=== PATIENT | female | born 1995 | race Two or more races ===

== ENCOUNTER 2017-04-10 07:42 | Emergency (ER) | payer OTHER ==
[2017-04-10] MEDS ORDERED: diPHENhydraMINE PO* 50 MG PO ONE (08:22)
[2017-04-10] MEDS ORDERED: predniSONE TAB* 20 MG PO ONE (08:22)
--- NOTE | 2017-04-10 09:07 | ED ---
Betito De La Cruz Alfonso, scribed for Andrew Broderick MD on 04/10/17 at 0825 . Allergic Reaction/Systemic - HPI Summary HPI Summary: This is a 22 y.o F presenting to [facility] c/o possible allergic reaction with localized edema on the right upper lip since approximately an hour ago. She reports an insect bite, possibly a mosquito, denying previous similar reactions. She denies rash, tongue swelling, SOB, trouble swallowing, and other respiratory distress. PMHx does not include asthma. 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 SHx includes occasional drinking. Pt is recent [employer] graduate. - History of Current Complaint Chief Complaint: EDAllergicReaction Time Seen by Provider: 04/10/17 08:12 Hx Obtained From: Patient Onset/Duration: Sudden Onset, Started hours ago - One hour, Still Present Timing: Constant Severity Initially: Moderate Severity Currently: Moderate Pain Intensity: 0 Pain Scale Used: 0-10 Numeric Location: Discrete @ - Right Upper lip Aggravating Factor(s): Other - Possible insect bite Alleviating Factor(s): Nothing Associated Signs And Symptoms: Negative: Cough Wheezing, Difficulty Breathing, Rash, Throat Tightening - Related Hx Possible Reaction To: Insect - Allergies/Home Medications Allergies/Adverse Reactions: Allergies Allergy/AdvReac Type Severity Reaction Status Date / Time No Known Allergies Allergy Verified 04/10/17 08:28 PMH/Surg Hx/FS Hx/Imm Hx Respiratory History: Denies: Hx Asthma Infectious Disease History: No Infectious Disease History: Denies: Traveled Outside the [place] in Last 30 Days - Family History Known Family History: Positive: Hypertension - Social History Occupation: Student - Recent [employer] Alcohol Use: Occasionally Hx Substance Use: No Substance Use Type: Reports: None Hx Tobacco Use: No Smoking Status (MU): Never Smoked Tobacco Review of Systems Negative: Fever Negative: Other - Tongue swelling and trouble swallowing Negative: Shortness Of Breath Positive: Other - Localized edema on the right upper lip . Negative: Rash All Other Systems Reviewed And Are Negative: Yes Physical Exam - Summary Physical Exam Summary: The patient is well-nourished in no acute distress and in no acute pain. The skin is warm and dry and skin color reflects adequate perfusion. No hives. HEENT: The head is normocephalic and atraumatic. The pupils are equal and reactive. The conjunctivae are clear and without drainage. Nares are patent and without drainage. Mouth reveals moist mucous membranes and the throat is patent without erythema and exudate. The external ears are intact. The ear canals are patent and without drainage. The tympanic membranes are intact. Tongue is not edematous. Neck is supple with full range of motion and non-tender. There are no carotid bruits. There is no neck vein distension. Respiratory: Chest is non-tender. Lungs are clear to auscultation and breath sounds are symmetrical and equal. Cardiovascular: Hear is regular rate and rhythm. There is no murmur or rub auscultated. There is no peripheral edema and pulses are symmetrical and equal. Abdomen: The abdomen is soft and non-tender. There are normal bowel sounds heard in all four quadrants and there is no organomegaly palpated. Musculoskeletal: There is no back pain noted. Extremities are non-tender with full range of motion. There is good capillary refill. There is no peripheral edema or calf tenderness elicited. Neurological: Patient is alert and oriented to person, place and time. The patient has symmetrical motor strength in all four extremities. Cranial nerves are grossly intact. Deep tendon reflexes are symmetrical and equal in all four extremities. Psychiatric: The patient has an appropriate affect and does not exhibit any anxiety or depression. Triage Information Reviewed: Yes Vital Signs On Initial Exam: Initial Vitals Temp Pulse Resp BP Pulse Ox 97.1 F 77 20 142/71 100 04/10/17 07:43 04/10/17 07:43 04/10/17 07:43 04/10/17 07:43 04/10/17 07:43 Vital Signs Reviewed: Yes Diagnostics - Vital Signs Vital Signs Temp Pulse Resp BP Pulse Ox 04/10/17 07:46 97.7 F 75 20 142/71 100 04/10/17 07:43 97.1 F 77 20 142/71 100 - Laboratory Lab Statement: Any lab studies that have been ordered have been reviewed, and results considered in the medical decision making process. Re-Evaluation - Re-Evaluation First Eval Re-Evaluation Time: 08:48 Comment: Swelling improved. Plan of care involving discharge and prednisone rx is discussed with pt, and she is agreeable. Allergic Reaction Course/Dx - Course Assessment/Plan: Pt presents to ED for right upper lip swelling after insect bite an hour ago. Pt states that the insect was probably mosquito. However, she denies any previous reaction to mosquito bite. Pt was symptomatically treated with diphenhydramine during ED visit, and is noted with improved swelling. Plan of care involving discharge and prednisone rx is discussed with pt, and she is agreeable. - Diagnoses Differential Diagnosis/HQI/PQRI: Positive: Anaphylaxis, Angioedema Provider Diagnoses: localized allergic reaction Discharge - Discharge Plan Condition: Stable Disposition: HOME Prescriptions: diPHENhydraMINE PO* [Benadryl PO 50 MG CAP*] 50 mg PO Q6H PRN #30 cap PRN Reason: allergic reaction predniSONE TAB* [Deltasone TAB*] 40 mg PO DAILY #10 tab Patient Education Materials: Prednisone (By mouth), Diphenhydramine (By mouth) , General Allergic Reaction (ED) Referrals: [facility] [Outside] - 2 Days Additional Instructions: Please take your Benadryl 50 mg by mouth four times a day. Apply ice as needed. The documentation as recorded by the Betito landa Alfonso accurately reflects the service I personally performed and the decisions made by me, Andrew Broderick MD.
== END 2017-04-10 09:05 | disposition home or self-care (01) ==
LOC: ED 07:42
DX: T78.40XA Allergy, unspecified, initial encounter (principal); R60.0 Localized edema; X58.XXXA Exposure to other specified factors, initial encounter
CPT/HCPCS: 99282; A9270-GY; J7512

== ENCOUNTER 2017-08-07 21:30 | Emergency (ER) | payer OTHER ==
[2017-08-07 22:11] VITALS: BP 132/84
[2017-08-07 22:32] LABS: Urine Bacteria 1+ (Absent)
[2017-08-08] MEDS ORDERED: Ciprofloxacin TAB* 500 MG PO ONE (00:28)
--- NOTE | 2017-08-09 12:41 | ED ---
Betito De La Cruz Alfonso, scribed for Arnoldo Oakley MD on 08/08/17 at 0030 . GI/ HPI - HPI Summary HPI Summary: This patient is a 22 year old F presenting to [facility] with a chief complaint of urinary symptoms since 1000 today, worse since 1800. The patient rates the pain 9/10 in severity. Symptoms aggravated by urinating. Symptoms alleviated by nothing. Patient reports dysuria, hematuria, and urinary frequency. Patient denies vaginal discharge, fever, chills, and back pain. LMP 2 weeks ago. She reports having exactly the same symptoms and a UTI diagnosis last year. - History of Current Complaint Chief Complaint: EDUrogenitalProblems Time Seen by Provider: 08/08/17 00:21 Stated Complaint: POSSIBLE UTI Hx Obtained From: Patient Onset/Duration: Started Hours Ago - 1000, Worse Since - 1800 Timing: Constant Current Severity: Severe Pain Intensity: 9 - /10 Associated Signs and Symptoms: Positive: Other: - dysuria, hematuria, and urinary frequency. Patient denies vaginal discharge, fever, chills, and back pain. Aggravating Factor(s): Urination Alleviating Factor(s): Nothing - Allergy/Home Medications Allergies/Adverse Reactions: Allergies Allergy/AdvReac Type Severity Reaction Status Date / Time No Known Allergies Allergy Verified 08/07/17 22:11 PMH/Surg Hx/FS Hx/Imm Hx Respiratory History: Denies: Hx Asthma Opthamlomology History: Denies: Hx Legally Blind EENT History: Denies: Hx Deafness Infectious Disease History: No Infectious Disease History: Denies: Traveled Outside the [place] in Last 30 Days - Family History Known Family History: Positive: Hypertension, Diabetes - Social History Alcohol Use: Occasionally Hx Substance Use: No Substance Use Type: Reports: None Hx Tobacco Use: No Smoking Status (MU): Never Smoked Tobacco Review of Systems Negative: Fever, Chills Positive: dysuria, frequency, hematuria, other - Urinary symptoms. Negative: discharge Positive: Other - Negative back pain All Other Systems Reviewed And Are Negative: Yes Physical Exam - Summary Physical Exam Summary: VITAL SIGNS: Reviewed. GENERAL: Patient is a well-developed and nourished female who is lying comfortable in the stretcher. Patient is not in any acute respiratory distress. HEAD AND FACE: No signs of trauma. No ecchymosis, hematomas or skull depressions. No sinus tenderness. EYES: PERRLA, EOMI x 2, No injected conjunctiva, no nystagmus. EARS: Hearing grossly intact. Ear canals and tympanic membranes are within normal limits. MOUTH: Oropharynx within normal limits. NECK: Supple, trachea is midline, no adenopathy, no JVD, no carotid bruit, no c- spine tenderness, neck with full ROM. CHEST: Symmetric, no tenderness at palpation LUNGS: Clear to auscultation bilaterally. No wheezing or crackles. CVS: Regular rate and rhythm, S1 and S2 present, no murmurs or gallops appreciated. ABDOMEN: Soft, non-tender. No signs of distention. No rebound no guarding, and no masses palpated. Bowel sounds are normal. EXTREMITIES: FROM in all major joints, no edema, no cyanosis or clubbing. NEURO: Alert and oriented x 3. No acute neurological deficits. Speech is normal and follows commands. SKIN: Dry and warm Triage Information Reviewed: Yes Vital Signs On Initial Exam: Initial Vitals Temp Pulse Resp BP Pulse Ox 98.0 F 82 18 132/84 99 08/07/17 22:09 08/07/17 22:09 08/07/17 22:09 08/07/17 22:09 08/07/17 22:09 Vital Signs Reviewed: Yes Diagnostics - Vital Signs Vital Signs Temp Pulse Resp BP Pulse Ox 08/07/17 22:09 98.0 F 82 18 132/84 99 - Laboratory Lab Results: Lab Results 08/07/17 08/07/17 Range/Units 22:19 22:45 Beta HCG, Quant < 0.60 mIU/mL Urine Color Red A Urine Appearance Cloudy Urine pH Not Reportable Ur Specific [place] Not Reportable Urine Protein Not Reportable Urine Ketones Not Reportable Urine Blood Not Reportable Urine Nitrate Not Reportable Urine Bilirubin Not Reportable Urine Urobilinogen Not Reportable Ur Leukocyte Esterase Not Reportable Urine WBC (Auto) 3+(>20/hpf) H (Absent) Urine RBC (Auto) 3+(>10/hpf) H (Absent) Urine Bacteria 1+ H (Absent) Urine Glucose Not Reportable Urine Ascorbic Acid Not Reportable Lab Statement: Any lab studies that have been ordered have been reviewed, and results considered in the medical decision making process. GIGU Course/Dx - Course Assessment/Plan: This patient is a 22 year old F presenting to [facility] with a chief complaint of urinary symptoms since 1000 today, worse since 1800. The patient rates the pain 9/10 in severity. Symptoms aggravated by urinating. Symptoms alleviated by nothing. Patient reports dysuria, hematuria, and urinary frequency. Patient denies vaginal discharge, fever, chills, and back pain. LMP 2 weeks ago. She reports having exactly the same symptoms and a UTI diagnosis last year. Urinalysis positive for UTI. The patient was given Ciprofloxacin. The patient is hemodynamically stable and alert and oriented x3. - Diagnoses Provider Diagnoses: UTI (urinary tract infection) Discharge - Discharge Plan Condition: Stable Disposition: HOME Prescriptions: Ciprofloxacin TAB* [Cipro 250 MG Tab*] 250 mg PO BID #6 tab Patient Education Materials: Urinary Tract Infection in Women (ED) Referrals: [facility] - [facility] [Medical Doctor] - 3 Days Additional Instructions: RETURN TO THE EMERGENCY DEPARTMENT FOR CHANGING OR WORSENING SYMPTOMS. The documentation as recorded by the Bettio landa Alfonso accurately reflects the service I personally performed and the decisions made by Adin tabares Walter, MD.
--- NOTE | 2017-08-10 14:19 | PN ---
Progress Note - Progress Note Date of Service: 08/07/17 Note: preliminary urine culture results showed 1-10,000 of e. coli growth. patient diagnosed and placed on cipro at d/c will wait for final culture sensitivity results however more than likely susceptible and not significant amount of bacteria growth.
== END 2017-08-08 00:36 | disposition home or self-care (01) ==
LOC: ED 21:30
DX: N39.0 Urinary tract infection, site not specified (principal); R30.0 Dysuria; R31.9 Hematuria, unspecified
CPT/HCPCS: 36415; 81003; 84702; 87077; 87086; 87186; 99282; A9270-GY